=== PATIENT | male | born 1965 | race Caucasian/White ===

== ENCOUNTER 2020-11-22 13:21 | Emergency (ER) | payer OTHER ==
[2020-11-22 14:33] LABS: BASOPHIL 0.4 % (0-2); EOSINOPHIL 0.8 % (0-5); MCH 28.9 pg (25.0-31.0); MCHC 33.3 g/dL (32.0-36.0); MCV 86.6 fL (78.0-100.0); MONOCYTE 8.1 % (0-12); MPV 10.6 fL (6.0-9.5); NEUTROPHIL 76.7 % (41-80); NRBC 0; PLT 159 K/uL (150-400); RBC 4.85 M/uL (4.70-6.00); WBC 9.4 K/uL (4.0-10.5)
[2020-11-22 14:43] LABS: IRON % SATURATION 41.2 %SAT (20-50)
[2020-11-22 14:46] LABS: ALBUMIN 4.1 g/dL (3.4-5.0); BILIRUBIN - TOTAL 0.5 mg/dL (0.2-1.0); BUN/CREAT RATIO (CALC) 43.5 RATIO; CREATININE 0.69 mg/dL (0.67-1.17); GLOBULIN (CALCULATION) 3.2 g/dL; POTASSIUM 3.8 mmol/L (3.5-5.1); TOTAL PROTEIN 7.3 g/dL (6.4-8.2)
[2020-11-22 16:13] LABS: BILIRUBIN NEGATIVE (NEGATIVE); BLOOD TRACE-INTACT Ery/uL (NEGATIVE); CLARITY CLEAR (CLEAR); COLOR YELLOW (YELLOW); GLUCOSE (U) NORMAL (NORMAL); LEUKOCYTES NEGATIVE Leu/uL (NEGATIVE); NITRITE NEGATIVE (NEGATIVE); PROTEIN NEGATIVE (NEGATIVE); SPECIFIC GRAVITY 1.025 (1.001-1.030); UROBILINOGEN 0.2 mg/dL (0.2-1.0)
[2020-11-22 16:33] LABS: BACTERIA TRACE; URINARY WBC RARE
== END 2020-11-22 17:36 | disposition home or self-care (01) ==
LOC: FER 13:21
PROVIDERS: Emergency Medicine
DX: R55 Syncope and collapse (principal); S01.01XA Laceration without foreign body of scalp, initial encounter; S41.112A Laceration without foreign body of left upper arm, initial encounter; E11.9 Type 2 diabetes mellitus without complications; W18.30XA Fall on same level, unspecified, initial encounter
CPT/HCPCS: 36415; 70450; 71045; 80053; 81001; 83036; 83540; 83550; 83735; 84484; 85025; 93005; J7030